=== PATIENT | female | born 1955 | race Native Hawaiian/Other Pacific Islander ===

== ENCOUNTER 2021-02-11 12:24 | Outpatient (CLI) | payer OTHER, MEDICARE ==
[2021-02-11 13:06] LABS: PLATELET COUNT 197 K/uL (152-353)
[2021-02-11 13:32] LABS: POTASSIUM 3.8 mmol/L (3.6-5.2)
== END 2021-02-11 20:27 | disposition home or self-care (01) ==
LOC: LABW 12:24
PROVIDERS: ATTEND Internal Medicine
DX: E11.22 Type 2 diabetes mellitus with diabetic chronic kidney disease (principal); N18.32 Chronic kidney disease, stage 3b; D63.1 Anemia in chronic kidney disease; R53.83 Other fatigue; E53.8 Deficiency of other specified B group vitamins
CPT/HCPCS: 36415; 80053; 81000; 82043; 82306; 82330; 82570; 82607; 82728; 82746; 83036; 83540; 83550; 83735; 83970; 84100; 84155; 84439; 84443; 85027; 85652; 86038; 87077; 87086; 87088; 87186

== ENCOUNTER 2021-04-20 13:11 | Outpatient (CLI) | payer OTHER, MEDICARE | END 2021-04-20 19:02 | disposition home or self-care (01) | LOC: MAMMO 13:11 | PROVIDERS: ATTEND Nurse Practitioner Family | DX: Z00.8 Encounter for other general examination (principal); Z71.89 Other specified counseling; Z71.82 Exercise counseling; Z13.31 Encounter for screening for depression; M81.0 Age-related osteoporosis without current pathological fracture; Z12.31 Encounter for screening mammogram for malignant neoplasm of breast ==

== ENCOUNTER 2021-06-02 09:15 | Outpatient (CLI) | payer OTHER, MEDICARE ==
[~2021-06-02] VITALS: Ht 152.4 cm; Wt 69.4 kg
== END 2021-06-02 19:09 | disposition home or self-care (01) ==
LOC: NM 09:15
PROVIDERS: ATTEND Specialist
DX: R06.02 Shortness of breath (principal)
CPT/HCPCS: A9500; J2785

== ENCOUNTER 2021-06-16 10:10 | Outpatient (CLI) | payer OTHER, MEDICARE ==
[2021-06-16 11:12] LABS: PLATELET COUNT 155 K/uL (152-353)
[2021-06-16 11:38] LABS: POTASSIUM 3.5 mmol/L (3.6-5.2)
== END 2021-06-16 19:08 | disposition home or self-care (01) ==
LOC: LABW 10:10
PROVIDERS: ATTEND Internal Medicine
DX: E11.22 Type 2 diabetes mellitus with diabetic chronic kidney disease (principal); N18.32 Chronic kidney disease, stage 3b; D63.1 Anemia in chronic kidney disease; R53.83 Other fatigue; D51.8 Other vitamin B12 deficiency anemias; D69.6 Thrombocytopenia, unspecified; D72.818 Other decreased white blood cell count; M06.4 Inflammatory polyarthropathy; M81.0 Age-related osteoporosis without current pathological fracture
CPT/HCPCS: 36415; 80053; 81000; 82043; 82306; 82330; 82570; 82607; 82728; 82746; 83036; 83540; 83550; 83735; 83883; 83921; 83970; 84100; 84156; 84165; 84439; 84443; 85027; 85652; 86038; 86140; 86200; 86334; 86431

== ENCOUNTER 2021-10-29 09:40 | Outpatient (CLI) | payer OTHER, MEDICARE ==
[2021-10-29 10:17] LABS: PLATELET COUNT 180 K/uL (152-353)
[2021-10-29 10:55] LABS: POTASSIUM 3.6 mmol/L (3.6-5.2)
== END 2021-10-29 21:20 | disposition home or self-care (01) ==
LOC: LABW 09:40
PROVIDERS: ATTEND Internal Medicine
DX: Z00.01 Encounter for general adult medical examination with abnormal findings (principal); N18.32 Chronic kidney disease, stage 3b; E11.22 Type 2 diabetes mellitus with diabetic chronic kidney disease; D63.1 Anemia in chronic kidney disease; R53.83 Other fatigue; D72.818 Other decreased white blood cell count; R74.8 Abnormal levels of other serum enzymes; E78.49 Other hyperlipidemia; E78.00 Pure hypercholesterolemia, unspecified; Z98.84 Bariatric surgery status; N39.0 Urinary tract infection, site not specified; R31.9 Hematuria, unspecified; I12.9 Hypertensive chronic kidney disease with stage 1 through stage 4 chronic kidney disease, or unspecified chronic kidney disease
CPT/HCPCS: 36415; 80053; 80061; 81002; 82043; 82306; 82330; 82570; 82607; 82728; 82746; 83036; 83540; 83550; 83735; 83970; 84100; 84156; 84165; 84166; 84439; 84443; 85027; 85652; 86038